=== PATIENT | female | born 1985 | race Caucasian/White ===

== ENCOUNTER 2021-06-05 15:22 | Emergency (ER) | payer OTHER ==
[2021-06-05 16:20] VITALS: BMI 32.9
[2021-06-05] MEDS ORDERED: LACTATED RINGERS SOLUTION 1000 ML INFUS.BAG IV ONE (16:38)
[2021-06-05 18:07] LABS: BASO % 0.5 % (0-2.0); EOS % 1.9 % (0-4.5); HEMATOCRIT 33.4 % (32.4-45.2); HEMOGLOBIN 10.7 GM/dL (10.7-15.3); LYMPH % 25.8 % (8-40); MCH 24.3 pg (25.7-33.7); MCHC 32.1 g/dl (32.0-36.0); MEAN CELL VOLUME 75.6 fl (80-96); MEAN PLT VOLUME 8.6 fl (7.5-11.1); MONO % 8.4 % (3.8-10.2); NEUT % 63.4 % (42.8-82.8); PLATELET COUNT 290 10^3/uL (134-434); RBC 4.42 M/mm3 (3.60-5.2); RDW 19.5 % (11.6-15.6); WHITE BLOOD COUNT 6.8 K/mm3 (4.0-10.0)
[2021-06-05 18:15] LABS: INR 1.03 (0.83-1.09); PROTHROMBIN TIME (PATIENT) 11.9 SEC (9.7-13.0)
[2021-06-05 18:18] LABS: ACTIVATED PTT 30.2 SECONDS (25.2-36.5)
[2021-06-05 18:29] LABS: CALCIUM 9.3 mg/dL (8.5-10.1)
[2021-06-05 18:30] LABS: ALBUMIN 3.7 g/dl (3.4-5.0)
[2021-06-05 18:32] LABS: CREATININE 0.7 mg/dL (0.55-1.3)
[2021-06-05 18:34] LABS: BILIRUBIN,TOTAL 0.4 mg/dL (0.2-1); TOT PROT 7.3 g/dl (6.4-8.2)
[2021-06-05 18:38] LABS: EPI CELLS >36 /uL (0-25.1); HYALINE CASTS 2 /uL (0-3.1); PH,URINE 6.5 (5.0-8.0); URINE APPEARANCE CLEAR; URINE BACTERIA 332 /uL (0-1359); URINE BILIRUBIN NEGATIVE (NEGATIVE); URINE COLOR YELLOW; URINE GLUCOSE (UA) NEGATIVE (NEGATIVE); URINE KETONE NEGATIVE (NEGATIVE); URINE LEUK ESTERASE TRACE (NEGATIVE); URINE NITRITE NEGATIVE (NEGATIVE); URINE PROTEIN NEGATIVE (NEGATIVE); URINE RBC 5 /uL (0-23.9); URINE UROBILINOGEN 0.2 mg/dL (0.2-1.0); URINE WBC 17 /uL (0-25.8)
[2021-06-05 20:29] VITALS: BP 106/75; PULSE 76; TEMP 97
[2021-06-05] MEDS ORDERED: cefTRIAXone SODIUM 1 GM VIAL ONE ×2 (21:16→21:21)
== END 2021-06-05 22:47 | disposition home or self-care (01) ==
LOC: JER 15:22
DX: R42 Dizziness and giddiness (principal)
CPT/HCPCS: 36415; 71046-TC-FY; 74177-TC; 76830-TC; 80053; 81003; 82962; 83690; 84703; 85025; 85610; 85730; 86850; 86900; 86901; 87086; 87491; 87591; 87661; 93005; 93010; 96372; 99285-25; Q9967

== ENCOUNTER 2022-11-15 23:08 | Emergency (ER) | payer OTHER ==
[2022-11-15 23:17] VITALS: TEMP 98; BMI 31.1
[2022-11-16] MEDS ORDERED: ACETAMINOPHEN 1000 MG/100 ML BAG IVPB ONE (01:33)
[2022-11-16] MEDS ORDERED: SODIUM CHLORIDE 1,000 ML IV STA (01:35)
[2022-11-16] MEDS ORDERED: ACETAMINOPHEN INJECTION 100 ML IVPB ONE (01:35)
[2022-11-16] MEDS ORDERED: METOCLOPRAMIDE HCL INJECTION 10 MG/2 ML VIAL IVPUSH ONE (01:55)
[2022-11-16 01:58] LABS: BASO % 0.4 % (0-2.0); EOS % 2.4 % (0-4.5); HEMATOCRIT 32.9 % (32.4-45.2); HEMOGLOBIN 10.4 GM/dL (10.7-15.3); LYMPH % 28.4 % (8-40); MCH 24.6 pg (25.7-33.7); MCHC 31.5 g/dl (32.0-36.0); MEAN CELL VOLUME 77.9 fl (80-96); MEAN PLT VOLUME 8.1 fl (7.5-11.1); MONO % 8.9 % (3.8-10.2); NEUT % 59.9 % (42.8-82.8); PLATELET COUNT 355 10^3/uL (134-434); RBC 4.22 M/mm3 (3.60-5.2); RDW 15.5 % (11.6-15.6)
[2022-11-16] MEDS ORDERED: METOCLOPRAMIDE HCL INJECTION 10 MG/2 ML VIAL ONE (02:01)
[2022-11-16 02:11] LABS: INR 0.99 (0.83-1.09); PROTHROMBIN TIME (PATIENT) 11.5 SEC (9.7-13.0)
[2022-11-16 02:13] LABS: ACTIVATED PTT 29.5 SECONDS (25.2-36.5)
[2022-11-16 02:15] LABS: POTASSIUM 3.7 mmol/L (3.5-5.1)
[2022-11-16 02:17] LABS: ALBUMIN 3.5 g/dl (3.4-5.0); BLOOD UREA NITROGEN 7.2 mg/dL (7-18); CALCIUM 8.7 mg/dL (8.5-10.1)
[2022-11-16 02:20] LABS: CREATININE 0.7 mg/dL (0.55-1.3)
[2022-11-16 02:22] LABS: TOT PROT 7.2 g/dl (6.4-8.2)
[2022-11-16 02:45] VITALS: BP 125/85; PULSE 75; RESP 18
[2022-11-16 03:12] LABS: BILIRUBIN,TOTAL 0.3 mg/dL (0.2-1)
[2022-11-16 03:43] LABS: EPI CELLS 14 /uL (0-25.1); HYALINE CASTS 0 /uL (0-3.1); PH,URINE 6.5 (5.0-8.0); URINE APPEARANCE CLEAR; URINE BACTERIA 280 /uL (0-1359); URINE BILIRUBIN NEGATIVE (NEGATIVE); URINE COLOR YELLOW; URINE GLUCOSE (UA) NEGATIVE (NEGATIVE); URINE KETONE NEGATIVE (NEGATIVE); URINE LEUK ESTERASE 1+ (NEGATIVE); URINE NITRITE NEGATIVE (NEGATIVE); URINE PROTEIN NEGATIVE (NEGATIVE); URINE RBC 5 /uL (0-23.9); URINE UROBILINOGEN 0.2 mg/dL (0.2-1.0); URINE WBC 15 /uL (0-25.8)
== END 2022-11-16 05:38 | disposition home or self-care (01) ==
LOC: JER 23:08
PROC: 3E033NZ Introduction of Analgesics, Hypnotics, Sedatives into Peripheral Vein, Percutaneous Approach (ICD-10-PCS; principal; 2022-11-16)
PROC: 3E033GC Introduction of Other Therapeutic Substance into Peripheral Vein, Percutaneous Approach (ICD-10-PCS; 2022-11-16)
PROC: 3E0337Z Introduction of Electrolytic and Water Balance Substance into Peripheral Vein, Percutaneous Approach (ICD-10-PCS; 2022-11-16)
DX: R07.9 Chest pain, unspecified (principal); R55 Syncope and collapse
CPT/HCPCS: 36415; 71045-TC-FY; 80053; 81003; 84484; 84703; 85025; 85610; 85730; 87086; 93005; 93010; 96374; 96375; 99285-25

== ENCOUNTER 2023-02-28 20:35 | Emergency (ER) | payer OTHER ==
[2023-02-28] MEDS ORDERED: METOCLOPRAMIDE HCL INJECTION 10 MG/2 ML VIAL IVPB ONE (21:08)
[2023-02-28] MEDS ORDERED: SODIUM CHLORIDE 0.9% 500 ML INFUS.BAG IV ONE (21:08)
[2023-02-28] MEDS ORDERED: METOCLOPRAMIDE HCL INJECTION 10 MG/2 ML VIAL ONE (21:14)
[2023-02-28 21:17] VITALS: BP 151/94; PULSE 110; RESP 18; TEMP 98.4; BMI 32.9
[2023-02-28 21:54] LABS: BASO % 0.5 % (0-2.0); EOS % 1.6 % (0-4.5); HEMATOCRIT 32.5 % (32.4-45.2); HEMOGLOBIN 9.9 GM/dL (10.7-15.3); LYMPH % 27.8 % (8-40); MCH 22.5 pg (25.7-33.7); MCHC 30.5 g/dl (32.0-36.0); MEAN CELL VOLUME 73.6 fl (80-96); MONO % 9.7 % (3.8-10.2); NEUT % 60.4 % (42.8-82.8); PLATELET COUNT 362 10^3/uL (134-434); RBC 4.42 M/mm3 (3.60-5.2); WHITE BLOOD COUNT 8.7 K/mm3 (4.0-10.0)
[2023-02-28 22:10] LABS: POTASSIUM 3.4 mmol/L (3.5-5.1)
[2023-02-28 22:12] LABS: CALCIUM 8.9 mg/dL (8.5-10.1)
[2023-02-28 22:13] LABS: ALBUMIN 3.5 g/dl (3.4-5.0); BLOOD UREA NITROGEN 8.6 mg/dL (7-18); MAGNESIUM 1.9 mg/dL (1.8-2.4)
[2023-02-28 22:16] LABS: CREATININE 0.9 mg/dL (0.55-1.3)
[2023-02-28 22:17] LABS: TOT PROT 7.3 g/dl (6.4-8.2)
[2023-02-28 22:18] LABS: BILIRUBIN,TOTAL 0.4 mg/dL (0.2-1)
== END 2023-02-28 23:55 | disposition home or self-care (01) ==
LOC: JER 20:35
PROC: 3E033GC Introduction of Other Therapeutic Substance into Peripheral Vein, Percutaneous Approach (ICD-10-PCS; principal; 2023-02-28)
PROC: 3E033GC Introduction of Other Therapeutic Substance into Peripheral Vein, Percutaneous Approach (ICD-10-PCS; 2023-02-28)
DX: R42 Dizziness and giddiness (principal); R51.9 Headache, unspecified; R55 Syncope and collapse; F41.9 Anxiety disorder, unspecified; R11.0 Nausea
CPT/HCPCS: 36415; 80053; 83735; 84100; 84443; 84484; 85025; 93005; 93010; 96374; 96375; 99284-25

== ENCOUNTER 2024-01-09 23:50 | Emergency (ER) | payer OTHER ==
[2024-01-09 23:58] VITALS: TEMP 98.6; BMI 36.6
[2024-01-10] MEDS ORDERED: ACETAMINOPHEN 325 MG TABLET (FP) ONE (00:59)
[2024-01-10] MEDS ORDERED: clonazePAM 2 MG TABLET ONE (01:00)
[2024-01-10] MEDS: clonazePAM 2 MG TABLET PO ONE (01:03)
[2024-01-10] MEDS: ACETAMINOPHEN 500 MG TABLET (FP) PO ONE (01:03)
[2024-01-10] MEDS ORDERED: VALSARTAN 80 MG TABLET ONE (02:29)
[2024-01-10] MEDS ORDERED: diphenhydrAMINE HCL 25 MG CAPSULE (FP) PO ONE (02:29)
[2024-01-10 02:34] VITALS: PULSE 92; RESP 18
[2024-01-10] MEDS: diphenhydrAMINE HCL 25 MG CAPSULE (FP) PO ONE (02:35)
[2024-01-10] MEDS: VALSARTAN 80 MG TABLET PO ONE (02:35)
[2024-01-10 02:47] LABS: HIV INTERPRETATION NEGATIVE (NEGATIVE)
[2024-01-10 03:41] LABS: HEMATOCRIT 37.3 % (32.4-45.2); HEMOGLOBIN 12.2 GM/dL (10.7-15.3); MCH 27.4 pg (25.7-33.7); MCHC 32.7 g/dl (32.0-36.0); MEAN CELL VOLUME 83.9 fl (80-96); MEAN PLT VOLUME 8.1 fl (7.5-11.1); PLATELET COUNT 293 10^3/uL (134-434); RBC 4.44 M/mm3 (3.60-5.2); RDW 14.7 % (11.6-15.6); WHITE BLOOD COUNT 9.9 K/mm3 (4.0-10.0)
[2024-01-10 03:46] LABS: EPI CELLS >36 /uL (0-25.1); HYALINE CASTS 2 /uL (0-3.1); URINE APPEARANCE CLEAR; URINE BACTERIA 417 /uL (0-1359); URINE BILIRUBIN NEGATIVE (NEGATIVE); URINE COLOR YELLOW; URINE GLUCOSE (UA) NEGATIVE (NEGATIVE); URINE KETONE NEGATIVE (NEGATIVE); URINE LEUK ESTERASE 1+ (NEGATIVE); URINE NITRITE NEGATIVE (NEGATIVE); URINE PROTEIN 1+ (NEGATIVE); URINE RBC 4 /uL (0-23.9); URINE WBC 98 /uL (0-25.8)
[2024-01-10 03:52] LABS: POTASSIUM 3.8 mmol/L (3.5-5.1)
[2024-01-10 03:54] LABS: CALCIUM 9.8 mg/dL (8.5-10.1)
[2024-01-10 03:55] LABS: ALBUMIN 3.8 g/dl (3.4-5.0); BLOOD UREA NITROGEN 10.7 mg/dL (7-18)
[2024-01-10 03:58] LABS: CREATININE 0.9 mg/dL (0.55-1.3)
[2024-01-10 04:00] LABS: BILIRUBIN,TOTAL 0.5 mg/dL (0.2-1); TOT PROT 7.5 g/dl (6.4-8.2)
[2024-01-10 04:24] VITALS: BP 162/102
[2024-01-10] MEDS ORDERED: DEXAMETHASONE 4 MG TABLET (FP) ONE (04:46)
[2024-01-10] MEDS: DEXAMETHASONE 4 MG TABLET (FP) PO ONE (04:48)
== END 2024-01-10 05:05 | disposition home or self-care (01) ==
LOC: JER 23:50
DX: R03.0 Elevated blood-pressure reading, without diagnosis of hypertension (principal); R51.9 Headache, unspecified; R42 Dizziness and giddiness
CPT/HCPCS: 36415; 80053; 80178; 81003; 84484; 85027; 86803; 87086; 87389; 93005; 93010; 99284-25

== ENCOUNTER → 2024-09-21 | Day surgery (SDC) | payer OTHER | END | disposition home or self-care (01) | LOC: JRADUS-SUR 12:50 | PROVIDERS: ATTEND Internal Medicine | PROC: 0H9T3ZX Drainage of Right Breast, Percutaneous Approach, Diagnostic (ICD-10-PCS; principal; 2024-09-21) | DX: N60.31 Fibrosclerosis of right breast (principal) | CPT/HCPCS: 19083; 76942-TC; 77065-TC; 87899; 88305-TC; A4648 ==